=== PATIENT | female | born 1960 | race Caucasian/White ===

== ENCOUNTER 2017-06-03 10:05 | Emergency (ER) | payer OTHER ==
[2017-06-03 10:24] VITALS: TEMP 98.2; O2SAT 99
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
[2017-06-03 11:58] VITALS: BP 134/87; PULSE 57; RESP 16
== END 2017-06-03 11:57 | disposition home or self-care (01) ==
DX: S80.11XA Contusion of right lower leg, initial encounter (principal); W22.8XXA Striking against or struck by other objects, initial encounter

== ENCOUNTER 2017-07-17 19:55 | Emergency (ER) | payer OTHER ==
--- NOTE | 2017-07-17 20:36 | EDPHY ---
H & P Stated Complaint: Left foot injury Time Seen by Provider: 07/17/17 20:32 HPI/ROS: CHIEF COMPLAINT: Left foot pain HISTORY OF PRESENT ILLNESS: The patient presents to the ED with complaints of left foot pain after she sustained a twisting injury while walking earlier today. She complains of pain across the dorsum of her left foot. She rates the pain is moderate in nature. She denies associated numbness or weakness. She denies additional injury. REVIEW OF SYSTEMS: A comprehensive 10 point review of systems is otherwise negative aside from elements mentioned in the history of present illness. Source: Patient - Personal History Current Tetanus/Diphtheria Vaccine: Yes Current Tetanus Diphtheria and Acellular Pertussis (TDAP): Yes - Medical/Surgical History Hx Asthma: No Hx Chronic Respiratory Disease: No Hx Diabetes: No Hx Cardiac Disease: No Hx Renal Disease: No Hx Cirrhosis: No Hx Alcoholism: No Hx HIV/AIDS: No Hx Splenectomy or Spleen Trauma: No Other PMH: hypothyroid - Social History Smoking Status: Never smoked - Physical Exam Exam: General Appearance: Alert, no distress Skin: No lacerations, No abrasion Back: No midline T/L/S pain Extremities: Tenderness to palpation across the dorsum of the left foot, mild soft tissue swelling Neurological: Sensation intact to light touch, normal motor strength noted throughout the left lower extremity Constitutional: Initial Vital Signs Temperature (C) 37.1 C 07/17/17 20:13 Heart Rate 90 07/17/17 20:13 Respiratory Rate 16 07/17/17 20:13 Blood Pressure 141/85 H 07/17/17 20:13 O2 Sat (%) 97 07/17/17 20:13 O2 Delivery Mode Room Air Allergies/Adverse Reactions: amoxicillin Allergy (Verified 07/17/17 20:14) erythromycin base Allergy (Verified 07/17/17 20:14) Home Medications: Medication Instructions Recorded Synthroid 06/03/17 Medical Decision Making - Diagnostics Imaging Results: Imaging Impressions Foot X-Ray 07/17/17 20:47 Impression: 1. Oblique fracture through the shaft of the left fifth metatarsal with about 2 mm of medial displacement but no angulation. ED Course/Re-evaluation: The patient presents to the ED with left foot pain after a mechanical fall. The patient is noted to have a 5th metatarsal fracture. The patient is noted to be neurologically intact. The patient is placed in a Jay boot. She has crutches. She will be referred to our on-call orthopedic surgeon for further evaluation. The patient is advised to use ibuprofen as needed for pain. She should use [place] as needed for severe pain. Differential Diagnosis: Differential diagnosis considered includes fracture, sprain, dislocation - Data Points Medications Given: Discontinued Medications Ibuprofen (Motrin) 600 mg PO EDNOW ONE Stop: 07/17/17 21:00 Last Admin: 07/17/17 21:01 Dose: 600 mg Departure - Departure Disposition: Home, Routine, Self-Care Clinical Impression: Metatarsal fracture Qualifiers: Encounter type: initial encounter Metatarsal bone: fifth Fracture type: closed Fracture alignment: nondisplaced Condition: Good Instructions: Foot Fracture in Adults (ED) Additional Instructions: 1. Jay boot as needed for comfort. 2. Use crutches as needed for ambulation. No weight on left foot until evaluated by Orthopedic surgery. 3. Take Ibuprofen or Motrin 600 mg by mouth three times a day. Ice as directed. 4. [place] as needed for severe pain 5. Please follow up with the orthopedic surgeon you have been referred to. Referrals: Riley Estrada MD [Unknown] - As per Instructions
[2017-07-17] MEDS ORDERED: IBUPROFEN 600 MG TAB PO ONE (20:59)
[2017-07-17] MEDS ORDERED: HYDROCOD/APAP 5/325 PREPACK#6 BTL TAKEHOME ONE (21:14)
[2017-07-17 21:38] VITALS: BP 138/94; PULSE 70; RESP 14; TEMP 97.7; O2SAT 93
== END 2017-07-17 21:37 | disposition home or self-care (01) ==
DX: S92.352A Displaced fracture of fifth metatarsal bone, left foot, initial encounter for closed fracture (principal); X50.9XXA Other and unspecified overexertion or strenuous movements or postures, initial encounter; Y99.8 Other external cause status; Y93.01 Activity, walking, marching and hiking
CPT/HCPCS: L4386

== ENCOUNTER → 2018-07-24 | Outpatient (CLI) | payer OTHER | LOC: BMCIMAGING 09:58 | PROVIDERS: ATTEND Physician Assistant | DX: M25.512 Pain in left shoulder (principal) ==

== ENCOUNTER → 2018-08-08 | Outpatient (CLI) | payer OTHER | LOC: FIMAGING 14:06 | PROVIDERS: ATTEND Family Medicine | DX: Z12.31 Encounter for screening mammogram for malignant neoplasm of breast (principal) ==